=== PATIENT | male | born 2000 | race Caucasian/White ===

== ENCOUNTER 2023-08-04 10:46 | Emergency (ER) | payer OTHER, SELFPAY ==
--- NOTE | ~2023-08-04 | XR_ITS ---
EXAMINATION: XR finger 4th RT min 2V DATE: 08/04/2023 11:26 INDICATION: Right hand fourth digit injury. TECHNIQUE: 4 views of right hand fourth digit were obtained. COMPARISON: None. FINDINGS: There is hyperextension of fourth proximal interphalangeal joint and flexion of fourth dist al interphalangeal joint. There is an avulsion fracture of dorsal base of fourth distal phalanx. Join t spaces are normal. IMPRESSION: 1. Avulsion fracture of dorsal base of fourth distal phalanx. Reviewed, dictated and finalized at location [facility]
[2023-08-04 10:48] VITALS: BP 107/71; PULSE 102; RESP 20; TEMP 36.4; O2SAT 100
--- NOTE | 2023-08-04 11:09 | ED.WOUNDLAC ---
HPI - Wound/Laceration General Chief Complaint: Wound/Laceration Stated Complaint: lac to lip Time Seen by Provider: 08/04/23 10:55 History of Present Illness HPI narrative: 23-year-old male presents emergency department for a laceration to his left upper lip that occurred 8 days ago. Patient states he was intoxicated and tripped over a part of the bed frame, states he landed on his lip. He did not lose consciousness. Reports an episode of emesis after the event. Denies confusion or amnesia, vision changes, focal numbness or weakness, seizure. He is also reporting pain to his right 4th finger from the fall with difficulty extending his DIP. Last tetanus unknown. States he did not seek medical care because he was embarrassed and was hoping that his lip would heal on its own. Related Data Allergies Allergy/AdvReac Type Severity Reaction Status Date / Time No Known Allergies Allergy Unverified 08/04/23 10:53 Review of Systems Review of Systems: CONSTITUTIONAL: Denies fever, chills, or sweats. EYES: Denies visual changes, redness, or discharge. ENT: Denies rhinorrhea, congestion, sore throat, or otalgia. CARDIOVASCULAR: Denies chest pain, palpitations, or edema. RESPIRATORY: Denies cough or dyspnea. GASTROINTESTINAL: See HPI GENITOURINARY: Denies dysuria or hematuria. SKIN: See HPI MUSCULOSKELETAL: See HPI NEUROLOGIC: Denies headache, numbness, or weakness. PSYCHIATRIC: Denies anxiety or depression. Exam Narrative: GENERAL: Well-appearing, well-nourished, and in no acute distress. HEAD: Normocephalic, atraumatic. EYES: PERRLA and EOMI. ENT: Nares clear, no rhinorrhea or epistaxis. Mucous membranes moist. No fracture dentition or lesions to the oral mucosa. NECK: Supple. CHEST: Clear to auscultation. No respiratory distress. HEART: Regular rate and rhythm. No murmur heard. Normal peripheral pulses. ABDOMEN: Soft, nontender, nondistended, normal active bowel sounds. EXTREMITIES: Right 4th finger with mild tenderness to the D IP and distal phalanx. Patient able to extend his finger at the MCP and PIP. D IP held and active flexion without ability to extend concerning for extensor tendon injury. Cap refill less than 2. Sensation intact. SKIN: 0.5cm laceration to the left upper lip with poor approximation. Laceration crosses vermilion border. It is not through and through. No active bleeding, surrounding erythema or drainage. NEURO: No focal deficits. Alert and oriented x3. Cranial nerves 2-12 intact. Strength 5/5 in BUE and BLE. Sensation intact throughout. Normal [id number]. No pronator drift. Course Vital Signs Vital signs: Vital Signs Temperature 97.6 F 08/04/23 10:48 Pulse Rate 102 H 08/04/23 10:48 Respiratory Rate 20 08/04/23 10:48 Blood Pressure 107/71 08/04/23 10:48 Pulse Oximetry 100 08/04/23 10:48 Oxygen Delivery Room Air 08/04/23 10:48 Temperature 97.6 F 08/04/23 10:48 Pulse Rate 102 H 08/04/23 10:48 Respiratory Rate 20 08/04/23 10:48 Blood Pressure 107/71 08/04/23 10:48 Pulse Oximetry 100 08/04/23 10:48 Oxygen Delivery Room Air 08/04/23 10:48 MDM - Wound/Laceration MDM Narrative Medical decision making narrative: 23-year-old male presents to the emergency department for a laceration to his left lip and injury to his right 4th finger that occurred 8 days ago after a mechanical fall he was intoxicated. See HPI for further history. Triage vital significant for mild tachycardia 102, otherwise unremarkable. Patient is neurovascularly intact. Exam is significant for the above. Shared decision making regarding obtaining a CT brain of his head, patient choosing to bypass CT at this time given injury was 8 days ago. X-ray of the 4th finger shows an avulsion fracture of the dorsal base of the 4th distal phalanx. Patient placed in a finger splint. Plan for lip laceration to close by secondary intention given that occurred 8 days ago. Will prescr
[2023-08-04] MEDS: TETANUS,DIPHTHERIA,AC PERTUSSIS ADULT (0.5 ML) BOOSTRIX IM (11:26)
[2023-08-04 12:08] VITALS: BP 107/56; PULSE 82; RESP 20; O2SAT 100
== END 2023-08-04 12:09 | disposition home or self-care (01) ==
PROVIDERS: Emergency Provider Physician Assistant
DX: S01.511A Laceration without foreign body of lip, initial encounter (principal); S62.634A Displaced fracture of distal phalanx of right ring finger, initial encounter for closed fracture; Z23 Encounter for immunization; W18.09XA Striking against other object with subsequent fall, initial encounter
CPT/HCPCS: 29130; 73140; 90471; 90715; 99284